=== PATIENT | male | born 1950 | race Caucasian/White ===

== ENCOUNTER 2018-03-13 17:41 | Emergency (ER) | payer BC ==
--- NOTE | 2018-03-13 18:53 | ED ---
Lower Extremity - HPI Summary HPI Summary: This is mitch Arriaga documenting for attending Sergio Ny MD. This patient is a 68 year old M presenting to [facility] with a chief complaint of sharp calf pain on R leg since last night. The patient described it as a Steve horse which has since resolved. The patient rates the pain 0/10 in severity currently. The patient also reports intermittent swelling bilaterally in feet. Patient denies groin pain or upper leg pain. He reports traveling a lot recently, as much as 8.5 hours 3 days ago, 6 hours 2 days ago, and 6 hours yesterday. - History of Current Complaint Chief Complaint: EDExtremityLower Stated Complaint: LEG SWELLING/CALF PAIN Time Seen by Provider: 03/13/18 17:49 Hx Obtained From: Patient Mechanism Of Injury: Other - Possibly excess traveling Pain Intensity: 0 Pain Scale Used: 0-10 Numeric Location: Is Discrete @ - R calf Character Of Pain: Sharp Associated Signs And Symptoms: Positive: Swelling - bilat feet - Allergies/Home Medications Allergies/Adverse Reactions: Allergies Allergy/AdvReac Type Severity Reaction Status Date / Time No Known Allergies Allergy Verified 03/13/18 18:10 PMH/Surg Hx/FS Hx/Imm Hx Endocrine/Hematology History: Denies: Hx Diabetes Cardiovascular History: Denies: Hx Hypertension, Hx Pacemaker/ICD Musculoskeletal History: Denies: Hx Rheumatoid Arthritis, Hx Osteoporosis Sensory History: Denies: Hx Hearing Aid Psychiatric History: Denies: Hx Panic Disorder - Surgical History Surgery Procedure, Year, and Place: HERNIA AGE 1 Infectious Disease History: No Infectious Disease History: Denies: Traveled Outside the [place] in Last 30 Days - Family History Known Family History: Positive: Cardiac Disease - Father from rheumatic fever, Other - mother had CVA - Social History Occupation: Employed Full-time - Professor at [employer] Tobacco Use: No Review of Systems Negative: Fever, Chills Negative: Erythema Negative: Sore Throat Negative: Chest Pain Negative: Shortness Of Breath, Cough Negative: Abdominal Pain, Vomiting, Nausea Negative: dysuria, hematuria Positive: Myalgia - on R calf, Edema - bilat feet Negative: Rash Neurological: Other - Denies dizziness All Other Systems Reviewed And Are Negative: Yes Physical Exam - Summary Physical Exam Summary: General: Well appearing, no distress Cardiovascular: Skin is well perfused Pulmonary: No respiratory distress, no tachypnea Abdomen: Non-distended Skin: Warm, pink, dry Psych: Normal affect Neuro: A&Ox3 Triage Information Reviewed: Yes Vital Signs On Initial Exam: Initial Vitals Temp Pulse Resp BP Pulse Ox 97.5 F 59 18 152/95 97 03/13/18 18:09 03/13/18 18:09 03/13/18 18:09 03/13/18 18:09 03/13/18 18:09 Vital Signs Reviewed: Yes Diagnostics - Vital Signs Vital Signs Temp Pulse Resp BP Pulse Ox 03/13/18 18:09 97.5 F 59 18 152/95 97 - Laboratory Lab Statement: Any lab studies that have been ordered have been reviewed, and results considered in the medical decision making process. - Ultrasound No standard instances Ultrasound Interpretation Completed By: Radiologist - Veinous Doppler Study shows: NO EVIDENCE OF DEEP VENOUS THROMBOSIS IS IDENTIFIED. Physician has reviewed this report. Re-Evaluation - Re-Evaluation 1 Re-Evaluation Time: 19:27 Comment: Informed the patient of the diagnosis Lower Extremity Course/Dx - Diagnoses Provider Diagnoses: Leg cramp Discharge - Sign-Out/Discharge Documenting (check all that apply): Patient Departure - DC - Discharge Plan Condition: Stable Disposition: HOME Patient Education Materials: Muscle Cramp (ED) Referrals: Glynn Kinney MD [Primary Care Provider] - (Follow up with your primary care physician in 2-3 days) Additional Instructions: Diagnosis: leg cramp and LE cramp. Wear compression stockings and keep your feet up. Follow up with your primary care physician in 2-3 days. RETURN TO THE EMERGENCY DEPARTMENT FOR CHANGING OR WORSENING SYMPTOMS
--- NOTE | 2018-03-13 19:04 | RAD ---
Indication: Right leg pain.. Duplex Doppler sonography of the deep venous system of the right lower extremity deep venous system was performed. Bilaterally the common femoral veins appear patent and compressible. Right proximal greater saphenous vein, proximal deep femoral vein, femoral vein, popliteal vein, posterior tibial veins and peroneal veins appear patent and compressible.A small amount of fluid adjacent to the gastrocnemius muscle is noted. IMPRESSION: NO EVIDENCE OF DEEP VENOUS THROMBOSIS IS IDENTIFIED.
[2018-03-13 20:08] VITALS: BP 174/86
== END 2018-03-13 19:38 | disposition home or self-care (01) ==
LOC: ED 17:41
DX: R25.2 Cramp and spasm (principal); M79.661 Pain in right lower leg
CPT/HCPCS: 99282